=== PATIENT | female | born 2005 | race Caucasian/White ===

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

== ENCOUNTER → 2025-02-19 | Outpatient (CLI) | payer BC | LOC: LAB 13:46 → LAB SHORT 13:46 | DX: N39.0 Urinary tract infection, site not specified (principal) | CPT/HCPCS: 87086 ==